=== PATIENT | female | born 1955 | race American Indian/Alaskan Native ===

== ENCOUNTER 2016-06-12 08:08 | Emergency (ER) | payer SELFPAY ==
[2016-06-12 08:56] LABS: Basophils % (Auto) 0.2 % (0.0-1.8); Eosinophils % (Auto) 0.7 % (0.0-4.3); Hemoglobin 14.1 gm/dl (10.1-14.3); Mean Corpuscular HGB Conc 32 % (30-34); Mean Corpuscular Hemoglobin 29 pg (28-32); Mean Corpuscular Volume 90 fl (79-97); Platelet Count 198 K/mm3 (140-440); Red Blood Count 4.89 M/mm3 (3.65-5.03); Red Cell Distribution Width 13.7 % (13.2-15.2)
[2016-06-12 09:07] LABS: BUN/Creatinine Ratio 21.11; Blood Urea Nitrogen 19 mg/dL (7-17); Calcium 8.6 mg/dL (8.4-10.2); Carbon Dioxide 27 mmol/L (22-30); Chloride 104.2 mmol/L (98-107); Glucose 85 mg/dL (65-100); Potassium 3.9 mmol/L (3.6-5.0); Sodium 141 mmol/L (137-145)
[2016-06-12 09:16] LABS: Anion Gap 14 mmol/L
--- NOTE | 2016-06-12 10:05 | Emergency Department Report ---
HPI - General Chief Complaint: Chest Pain Time Seen by Provider: 06/12/16 09:58 - HPI HPI: Chief complaint: Chest pain MODE OF ARRIVAL: Private car SOURCE: Patient TIMIN:00 last night LOCATION OF PAIN: Costrosternal order CONTEXT: Patient states she's had an infected tooth for 2 days she's been taking Zithromax with some improvement and states last night around 8:00 had severe sharp pain both sides of her sternum lasting 3-4 minutes. Patient denies any other symptoms no shortness of breath, nausea, vomiting, diarrhea, cough, cold, fever. Patient states she's had swelling to her left jaw secondary to infection in her left upper molar. QUALITY: Sharp SEVERITY: Currently gone DURATION OF SYMPTOMS: 3-4 minutes MODIFYING FACTORS: Nothing ASSOCIATED SIGNS AND SYMPTOMS: Denies CARDIAC RISK FACTORS: male no: age no: hypertension no: diabetes no :obesity no: cocaine no : cholesterol no: family history no: Smoker yes ED Past Medical Hx - Past Medical History Previous Medical History?: Yes Additional medical history: dental caries/abscess - Surgical History Past Surgical History?: Yes Additional Surgical History: oral abscess - Social History Smoking Status: Current Every Day Smoker Substance Use Type: Alcohol, Non Opiate Pain - Medications Home Medications: Home Medications Medication Instructions Recorded Confirmed Last Taken Type Azithromycin [Zithromax TAB] 500 mg PO QDAY #3 tablet 06/12/16 Unknown Rx traMADol [Ultram 50 MG tab] 50 mg PO Q6HR PRN #20 tablet 06/12/16 Unknown Rx ED Review of Systems ROS: Stated complaint: CHEST PAIN/LEFT SIDE FACE SWOLLEN Other details as noted in HPI ROS Constitutional: No fever ENT: No uri symptoms Cardiovascular: chest pain Respiratory: No sob or cough GI: No nausea vomiting or diarrhea : No dysuria frequency or urgency, Skin: No rash Neuro: No focal weakness or numbness Psych: No depression Connor/lymph: No edema Physical Exam - Physical Exam Vital Signs: Vital Signs 06/12/16 06/12/16 08:21 09:55 Temperature 98.6 F Pulse Rate 79 Respiratory 18 16 Rate Blood Pressure 135/91 O2 Sat by Pulse 99 Oximetry Physical Exam: GENERAL: The patient is well-developed well-nourished . HEENT: Normocephalic. Atraumatic. Extraocular motions are intact. Patient has moist mucous membranes. Extremely poor oral hygiene with multiple missing teeth. Left upper molars are all are gone except for 1 which is tender with slight erythema around the gum and some swelling to the left cheek. NECK: Supple. No meningitic signs are noted. There is no adenopathy noted. CHEST/LUNGS: Clear to auscultation. There is no respiratory distress noted. HEART/CARDIOVASCULAR: Regular. There is no tachycardia. There is no gallop rub or murmur. ABDOMEN: Abdomen is soft, nontender. Patient has normal bowel sounds. There is no abdominal distention. SKIN: There is no rash. There is no edema. There is no diaphoresis. NEURO: The patient is awake, alert, and oriented. The patient is cooperative. The patient has no focal neurologic deficits. The patient has normal speech. MUSCULOSKELETAL: There is no tenderness or deformity. There is no limitation range of motion. There is no evidence of acute injury. ED Course Vital Signs 06/12/16 06/12/16 08:21 09:55 Temperature 98.6 F Pulse Rate 79 Respiratory 18 16 Rate Blood Pressure 135/91 O2 Sat by Pulse 99 Oximetry - Reevaluation(s) Reevaluation #1: 06/12/16 10:13 Patient remained pain free in the emergency department. ED Medical Decision Making - Lab Data Result diagrams: 06/12/16 08:34 06/12/16 08:34 Laboratory Tests 06/12/16 08:34 Calcium 8.6 Troponin T < 0.010 - EKG Data -: EKG Interpreted by Me EKG shows normal: sinus rhythm Rate: normal (73) - EKG Data When compared to previous EKG there are: previous EKG unavailable Interpretation: normal EKG - Radiology Data interpreted by me: Chest Xray WNL. Critical care attestation.: If time is entered above; I have spent that time in minutes in the direct care of this critically ill patient, excluding procedure time. ED Disposition Clinical Impression: Atypical chest pain, Abscess, dental Disposition: DISCHARGED TO HOME OR SELFCARE Is pt being admited?: No Does the pt Need Aspirin: No Condition: Stable Instructions: Dental Abscess (ED) Prescriptions: Azithromycin [Zithromax TAB] 500 mg PO QDAY #3 tablet traMADol [Ultram 50 MG tab] 50 mg PO Q6HR PRN #20 tablet PRN Reason: Pain Referrals: [facility] [Outside] - 3-5 Days [facility] [Outside] - 3-5 Days [facility] [Provider Group] - 7-10 days Time of Disposition: 10:27
[2016-06-12 10:47] VITALS: BP 144/70
--- NOTE | 2016-06-13 11:17 | XRay Report ---
ROUTINE CHEST, TWO VIEWS: HISTORY: chest pain. The trachea, heart, mediastinal contour, lung ocampo and bony thorax are unremarkable. IMPRESSION: Unremarkable chest x-ray.
== END 2016-06-12 10:46 | disposition home or self-care (01) ==
LOC: ED 08:08
DX: R07.89 Other chest pain (principal); K04.7 Periapical abscess without sinus; F17.200 Nicotine dependence, unspecified, uncomplicated
CPT/HCPCS: 36415; 71020; 80048; 84484; 85025; 93005; 93010; 99285

== ENCOUNTER 2017-09-18 21:46 | Emergency (ER) | payer SELFPAY ==
[2017-09-18 22:36] VITALS: BP 130/86
[2017-09-19] MEDS ORDERED: BENADRYL PO ONE (05:20)
[2017-09-19] MEDS ORDERED: PEPCID PO ONE (05:20)
[2017-09-19] MEDS ORDERED: DELTASONE PO ONE (05:20)
--- NOTE | 2017-09-19 05:20 | Emergency Department Report ---
ED Rash HPI - HPI Chief Complaint: Animal Bite Stated Complaint: INSECT BITE Time Seen by Provider: 09/19/17 05:19 Duration: 1 Day Location: Neck, Chest, Back, Upper Extremities, Lower Extremities Suspected Cause: Insect Rash Symptoms: Yes Itching (itching to sides.), No Facial Swelling, No Tongue/ Oral Swelling, No Breathing Difficulties, No Choking Sensation, No Wheezing/ Dyspnea, No Peeling, No Blistering, No Fever, No Lightheaded, No Malaise, No Myalgias Severity: moderate (moderate itching. Denies any pain) Other History: Patient says she was visiting her family out of town and she slept in the room were no one really sleeps in. She says she got up and started having skin irritation on the back of her neck, upper back, left arm and right arm, legs and ankles and is gone on since yesterday. She says areas are red with some swelling and very itchy. Denies any respiratory symptoms. Denies any difficulty swallowing, drooling or swelling of tongue. Immunizations up-to-date. ED Review of Systems ROS: Stated complaint: INSECT BITE Other details as noted in HPI Comment: All other systems reviewed and negative Constitutional: no symptoms reported Eyes: denies: eye pain, vision change ENT: denies: throat pain, epistaxis, congestion Respiratory: no symptoms reported Cardiovascular: denies: chest pain, palpitations, dyspnea on exertion, edema, syncope, paroxysmal nocturnal dyspnea Gastrointestinal: denies: abdominal pain, nausea, vomiting, diarrhea Genitourinary: denies: hematuria Musculoskeletal: denies: back pain, arthralgia, myalgia Skin: rash, pruritus Neurological: denies: headache, numbness, paresthesias, abnormal gait, vertigo ED Past Medical Hx - Past Medical History Previous Medical History?: Yes Additional medical history: dental caries/abscess - Surgical History Past Surgical History?: Yes Additional Surgical History: oral abscess - Family History Family history: no significant - Social History Smoking Status: Never Smoker Substance Use Type: None - Medications Home Medications: Home Medications Medication Instructions Recorded Confirmed Last Taken Type Azithromycin [Zithromax TAB] 500 mg PO QDAY #3 tablet 06/12/16 Unknown Rx traMADol [Ultram 50 MG tab] 50 mg PO Q6HR PRN #20 tablet 06/12/16 Unknown Rx Cetirizine HCl [ZyrTEC] 10 mg PO QAM 7 Days #7 capsule 09/19/17 Unknown Rx Clindamycin [Clindamycin CAP] 300 mg PO Q8H 7 Days #21 cap 09/19/17 Unknown Rx hydrOXYzine HCL [Atarax] 25 mg PO Q6HR PRN #12 tablet 09/19/17 Unknown Rx predniSONE [Deltasone] 20 mg PO QDAY 3 Days #3 tab 09/19/17 Unknown Rx Rash Exam - Exam General: Vital signs noted. No distress. Alert and acting appropriately. This is a 62-year-old female well-nourished well-developed in no acute distress. Patient is nontoxic in appearance HEENT: No Periorbital Edema, No Conjuctival Injection, No Chemosis, No Perioral Edema, No Tongue Edema, No Uvular Edema (oral airways patent), No Compromised Airway, No Drooling Lungs: Yes Good Air Exchange (CTAB), No Wheezes, No Ronchi, No Stridor, No Cough , No Labored Respirations, No Retractions, No Use of Accessory Muscles, No Other Abnormal Lung Sounds Heart: Yes Regular (S1, S2), No Murmur Skin: Yes Urticarial Rash (scattered sparsely to back, neck, chest, bilateral upper and lower extremity), Yes Tenderness (mild tenderness to palpate.), Yes Erythema (surrounding cellulitis.), Yes Edema (mild swelling at rash site.), Yes Other (rash areas appear to be insect bite with some cellulitis.), No Maculopapular Rash, No Morbilliform rash, No Bulla(e), No Excoriations, No Weeping, No Encrustations Other: Positive: Abdomen Normal (normal bowel sounds in all quadrants, no guarding or rebound tenderness.), Neurologic Normal (patient alert and oriented 3, normal speech, no drooling. No facial drooping. Normal gait.), Musculoskeletal Normal (extremity: No clubbing, cyanosis or edema. +2 pulses to all extremities and no neurovascular compromise) ED Course Vital Signs 09/18/17 09/18/17 22:31 22:41 Temperature 97.9 F 97.9 F Pulse Rate 74 67 Respiratory 18 18 Rate Blood Pressure 130/86 130/86 O2 Sat by Pulse 99 98 Oximetry - Reevaluation(s) Reevaluation #1: 04/16/18 06:13 Patient received Benadryl 50 mg by mouth, the physical 60 mg by mouth and Pepcid 40 mg in emergency room which relieve itching and rash is subsiding. ED Medical Decision Making - Medical Decision Making ED course: Patient status post insect bite with itching and erythema, raised areas sparsely scattered to body surface. Patient with mild cellulitis from insect bite and some allergic reaction that is localized. She was given Benadryl 50 mg by mouth, Pepcid 40 mg by mouth and that was on 600. Emergency room which helped her itching and rash is subsiding. Discussed patient diagnosis and treatment plan and she doesn't have primary care physician cytology scheduled appointment to follow up with primary care and 2 days. Patient discharged home in stable condition with her family member with prescription for Atarax, Zyrtec, prednisone and clindamycin. Critical care attestation.: If time is entered above; I have spent that time in minutes in the direct care of this critically ill patient, excluding procedure time. ED Disposition Clinical Impression: Pruritic dermatitis Cellulitis Qualifiers: Site of cellulitis: unspecified site Qualified Code(s): L03.90 - Cellulitis, unspecified Insect bite Qualifiers: Encounter type: initial encounter Qualified Code(s): W57.XXXA - Bitten or stung by nonvenomous insect and other nonvenomous arthropods, initial encounter Disposition: TO HOME OR SELFCARE Is pt being admited?: No Does the pt Need Aspirin: No Condition: Stable Instructions: Insect Bite or Sting (ED), Cellulitis (ED), Acute Rash (ED), Itchy Skin (ED) Additional Instructions: Keep affected area clean and dry Take Medication as prescribed Follow-up the primary care physician in 2 days If you're rash worsens need to follow-up cough, shortness of breath, swelling of tongue, difficulty swallowing, drooling or slowness neck, chest pain or shortness of breath is return to the emergency room [facility] Prescriptions: Cetirizine HCl [ZyrTEC] 10 mg PO QAM 7 Days #7 capsule Clindamycin [Clindamycin CAP] 300 mg PO Q8H 7 Days #21 cap hydrOXYzine HCL [Atarax] 25 mg PO Q6HR PRN #12 tablet PRN Reason: Itching predniSONE [Deltasone] 20 mg PO QDAY 3 Days #3 tab Referrals: your, primary care physician [Other] - 09/21/17 Forms: Work/School Release Form(ED), Accompanied Note
== END 2017-09-19 06:20 | disposition home or self-care (01) ==
LOC: ED 21:46
DX: L30.8 Other specified dermatitis (principal); L03.90 Cellulitis, unspecified; Z88.0 Allergy status to penicillin; W57.XXXA Bitten or stung by nonvenomous insect and other nonvenomous arthropods, initial encounter; Y93.89 Activity, other specified; Y99.8 Other external cause status; Y92.89 Other specified places as the place of occurrence of the external cause
CPT/HCPCS: 99282; J7512